=== PATIENT | male | born 1930 | race Caucasian/White ===

== ENCOUNTER 2017-12-06 13:59 | Inpatient (IN) | payer MEDICARE, MEDICAID ==
[~2017-12-06] VITALS: Ht 165.1 cm; Wt 52.7 kg
[~2017-12-06 13:59] MED LIST: AMLO5TAB4 PO; ASPI-1159 PO; PHEN100C4 PO
[2017-12-06 15:06] LABS: BASOPHILS % 0.4 % (0.0-2.0); EOSINOPHILS % 0.4 % (0.0-5.0); HEMOGLOBIN. 9.7 g/dL (14.0-18.0); LYMPHOCYTES % 10.5 % (20.0-50.0); MEAN CORPUSCULAR HEMOGLOBIN 30.4 pg (28.0-32.0); MEAN CORPUSCULAR VOLUME 88.1 fL (80.0-94.0); MONOCYTES % 5.5 % (2.0-8.0); NEUTROPHILS % 83.2 % (40.0-76.0); PLATELET 201 x1000/uL (130-400); RED BLOOD CELL COUNT 3.18 mill/uL (4.7-6.1); RED CELL DISTRIBUTION WIDTH 15.3 % (11.6-14.6)
[2017-12-06] MEDS ORDERED: ATROPINE SULFATE 1MG/10ML SYR ONE (15:06)
[2017-12-06 15:19] LABS: CHLORIDE 88 mEq/L (98-107)
[2017-12-06] MEDS ORDERED: DOPAMINE 400MG PREMIX 250 ML IV ONE ×2 (15:36→15:45)
[2017-12-06] MEDS ORDERED: SODIUM POLYSTYRENE SULFONATE 15 G/60 ML BOT PO NR (15:45)
[2017-12-06] MEDS ORDERED: SODIUM CHLORIDE 0.9% 500 ML IV ONE (15:45)
[2017-12-06 22:00] VITALS: BP 165/113
[2017-12-06] MEDS: DEXT 5%/0.9% NACL 1,000 ML IV SCH (23:00)
[2017-12-06] MEDS ORDERED: IPRATROPIUM/ALBUTEROL 0.5-3(2.5)MG/3ML NEB HHN PRN (23:00)
[2017-12-06] MEDS ORDERED: ACETAMINOPHEN 325MG TABLET PO PRN (23:00)
[2017-12-06] MEDS: DOPAMINE 400MG PREMIX 250 ML IV PRN (23:00)
[2017-12-06] MEDS ORDERED: ONDANSETRON HCL 4MG/2ML INJ IV PRN (23:00)
[2017-12-06 23:23] VITALS: BP 155/68
[2017-12-06 23:30] VITALS: BP 176/59
[2017-12-06 23:45] VITALS: BP 166/61
[2017-12-07] VITALS (94 sets, daily range): BP systolic 114–179; BP diastolic 32–114
[2017-12-07 00:37] LABS: CREATINE KINASE MB FRACTION 2.4 ng/mL (0.5-3.6)
[2017-12-07 00:55] LABS: CLARITY URINE CLEAR (CLEAR); COLOR URINE YELLOW (YELLOW); KETONES URINE NEGATIVE (NEGATIVE); LEUKOCYTE ESTERASE URINE 1+ (NEGATIVE); NITRITE URINE NEGATIVE (NEGATIVE); OCCULT BLOOD URINE TRACE (NEGATIVE); PROTEIN URINE TRACE (NEGATIVE); SPECIFIC GRAVITY URINE 1.008 (1.005-1.030); UROBILINOGEN URINE 0.2 E.U./dL (0.2-1.0)
[2017-12-07] MEDS: DOPAMINE 400MG PREMIX 250 ML IV PRN (02:27)
[2017-12-07 04:55] LABS: BASOPHILS % 0.3 % (0.0-2.0); EOSINOPHILS % 0.9 % (0.0-5.0); HEMATOCRIT. 29.7 % (42.0-52.0); HEMOGLOBIN. 10.2 g/dL (14.0-18.0); LYMPHOCYTES % 17.6 % (20.0-50.0); MEAN CORPUSCULAR HEMOGLOBIN 30.2 pg (28.0-32.0); MEAN CORPUSCULAR VOLUME 88.1 fL (80.0-94.0); MEAN PLATELET VOLUME 7.6 fl (7.4-10.4); MONOCYTES % 6.1 % (2.0-8.0); NEUTROPHILS % 75.1 % (40.0-76.0); PLATELET 206 x1000/uL (130-400); RED BLOOD CELL COUNT 3.37 mill/uL (4.7-6.1); RED CELL DISTRIBUTION WIDTH 15.2 % (11.6-14.6)
[2017-12-07 09:02] LABS: CREATINE KINASE 59 IU/L (39-308); CREATINE KINASE MB FRACTION 1.7 ng/mL (0.5-3.6)
[2017-12-07] MEDS ORDERED: PNEUMOCOCCAL 23-VAL P-SAC VAC 0.5 ML IM ONE (12:00)
[2017-12-07] MEDS ORDERED: INFLUENZA VIRUS VACCINE(AFLURIA) 0.5ML SYR IM ONE (12:00)
[2017-12-07] MEDS: DEXT 5%/0.9% NACL 1,000 ML IV SCH (12:56)
[2017-12-08] VITALS (98 sets, daily range): BP systolic 122–181; BP diastolic 37–116
[2017-12-08] MEDS: DEXT 5%/0.9% NACL 1,000 ML IV SCH ×2 (01:14→15:14)
[2017-12-08 04:41] LABS: BASOPHILS % 0.6 % (0.0-2.0); EOSINOPHILS % 2.2 % (0.0-5.0); HEMATOCRIT. 28.1 % (42.0-52.0); HEMOGLOBIN. 9.7 g/dL (14.0-18.0); LYMPHOCYTES % 20.1 % (20.0-50.0); MEAN CORPUSCULAR HEMOGLOBIN 30.6 pg (28.0-32.0); MEAN CORPUSCULAR VOLUME 88.2 fL (80.0-94.0); MEAN PLATELET VOLUME 7.5 fl (7.4-10.4); MONOCYTES % 5.4 % (2.0-8.0); NEUTROPHILS % 71.7 % (40.0-76.0); PLATELET 201 x1000/uL (130-400); RED BLOOD CELL COUNT 3.18 mill/uL (4.7-6.1); RED CELL DISTRIBUTION WIDTH 15.2 % (11.6-14.6)
[2017-12-08] MEDS: DOPAMINE 400MG PREMIX 250 ML IV PRN (05:28)
[2017-12-08] MEDS: DOCUSATE SODIUM 250MG CAPSULE PO SCH (09:01)
[2017-12-08] MEDS ORDERED: LEVETIRACETAM 500 MG in SODIUM CHLORIDE 0.9% 100 ML IV SCH (11:00)
[2017-12-08] MEDS ORDERED: LACTULOSE 20G/30ML UDC PO PRN (12:30)
[2017-12-08] MEDS ORDERED: LACTULOSE 20G/30ML UDC PO NR (12:30)
[2017-12-08] MEDS: LEVETIRACETAM 500MG PREMIX 100 ML IV SCH ×2 (12:35→21:55)
[2017-12-08] MEDS ORDERED: HYDRALAZINE 20MG/ML VIAL IV NR (19:30)
[2017-12-08] MEDS: AMLODIPINE 5MG TABLET PO SCH (21:55)
[2017-12-09] VITALS (116 sets, daily range): BP systolic 61–176; BP diastolic 24–106
[2017-12-09] MEDS: DEXT 5%/0.9% NACL 1,000 ML IV SCH ×2 (03:35→17:41)
[2017-12-09] MEDS: LEVETIRACETAM 500MG PREMIX 100 ML IV SCH ×2 (09:15→20:50)
[2017-12-09] MEDS: DOCUSATE SODIUM 250MG CAPSULE PO SCH (10:27)
[2017-12-09] MEDS: AMLODIPINE 5MG TABLET PO SCH ×2 (10:27→20:50)
[2017-12-10] VITALS (16 sets, daily range): BP systolic 110–169; BP diastolic 50–114
[2017-12-10 05:22] LABS: BASOPHILS % 0.7 % (0.0-2.0); EOSINOPHILS % 4.7 % (0.0-5.0); HEMATOCRIT. 25.9 % (42.0-52.0); HEMOGLOBIN. 8.9 g/dL (14.0-18.0); LYMPHOCYTES % 21.7 % (20.0-50.0); MEAN CORPUSCULAR HEMOGLOBIN 30.7 pg (28.0-32.0); MEAN CORPUSCULAR VOLUME 89.6 fL (80.0-94.0); MEAN PLATELET VOLUME 7.5 fl (7.4-10.4); MONOCYTES % 5.8 % (2.0-8.0); NEUTROPHILS % 67.1 % (40.0-76.0); PLATELET 165 x1000/uL (130-400); RED BLOOD CELL COUNT 2.89 mill/uL (4.7-6.1); RED CELL DISTRIBUTION WIDTH 15.5 % (11.6-14.6)
[2017-12-10] MEDS: AMLODIPINE 5MG TABLET PO SCH ×2 (11:15→20:54)
[2017-12-10] MEDS: LEVETIRACETAM 500MG PREMIX 100 ML IV SCH ×3 (11:15→22:08)
[2017-12-10] MEDS: DOCUSATE SODIUM 250MG CAPSULE PO SCH (11:15)
[2017-12-10] MEDS: LOSARTAN POTASSIUM 25 MG TABLET PO SCH (11:17)
[2017-12-10] MEDS ORDERED: MAGNESIUM 2 G PREMIX 50 ML IV NR (12:00)
[2017-12-10] MEDS: AMPICILLIN 500 MG in SODIUM CHLORIDE 0.9% 50 ML IV SCH ×2 (22:00→23:46)
[2017-12-11] VITALS: BP 140/52
[2017-12-11 04:00] VITALS: BP 157/52
[2017-12-11] MEDS: AMPICILLIN 500 MG in SODIUM CHLORIDE 0.9% 50 ML IV SCH (05:44)
[2017-12-11 08:00] VITALS: BP_SYST 142; BP_SYST 160; BP_DIAS 50; BP_DIAS 63
[2017-12-11] MEDS: LEVETIRACETAM 500MG PREMIX 100 ML IV SCH (10:26)
[2017-12-11] MEDS: DOCUSATE SODIUM 250MG CAPSULE PO SCH (10:26)
[2017-12-11] MEDS: LOSARTAN POTASSIUM 25 MG TABLET PO SCH (10:26)
[2017-12-11] MEDS: AMLODIPINE 5MG TABLET PO SCH (10:32)
[2017-12-11 13:02] VITALS: BP 120/51
== END 2017-12-11 14:10 | disposition home health service (06) | DRG 727 ==
LOC: ER 14:33 → EDBEDREQSVC 15:37 → CVICU 15:56 → EDBEDREQ 15:58 → EDBEDREQTM 15:58 → EDBEDREQSVC 15:58 → ENRESERV 16:01 → 6WST 12-10 13:23
PROVIDERS: ADMIT Internal Medicine; ATTEND Internal Medicine
PROC: 06HM33Z Insertion of Infusion Device into Right Femoral Vein, Percutaneous Approach (ICD-10-PCS; principal; 2017-12-06)
DX: B37.41 Candidal cystitis and urethritis (principal); G93.41 Metabolic encephalopathy; E87.5 Hyperkalemia; I27.20 Pulmonary hypertension, unspecified; E87.1 Hypo-osmolality and hyponatremia; Z68.1 Body mass index [BMI] 19.9 or less, adult; N39.0 Urinary tract infection, site not specified; B37.49 Other urogenital candidiasis; D64.9 Anemia, unspecified; G40.909 Epilepsy, unspecified, not intractable, without status epilepticus; T42.0X5A Adverse effect of hydantoin derivatives, initial encounter; I13.10 Hypertensive heart and chronic kidney disease without heart failure, with stage 1 through stage 4 chronic kidney disease, or unspecified chronic kidney disease; N18.9 Chronic kidney disease, unspecified; R00.1 Bradycardia, unspecified; B95.2 Enterococcus as the cause of diseases classified elsewhere; F03.90 Unspecified dementia, unspecified severity, without behavioral disturbance, psychotic disturbance, mood disturbance, and anxiety; H91.90 Unspecified hearing loss, unspecified ear; R33.8 Other retention of urine; N40.1 Benign prostatic hyperplasia with lower urinary tract symptoms; K59.00 Constipation, unspecified; R63.4 Abnormal weight loss; Y92.89 Other specified places as the place of occurrence of the external cause; Z85.528 Personal history of other malignant neoplasm of kidney; Z86.73 Personal history of transient ischemic attack (TIA), and cerebral infarction without residual deficits; Z79.899 Other long term (current) drug therapy; Z85.828 Personal history of other malignant neoplasm of skin
CPT/HCPCS: 36415; 36556; 70551; 71045; 80048; 80185; 81001; 82040; 82550; 82553; 82962; 83735; 84443; 84484; 87077; 87186; 92610; 93005; 93306; 93970; 99285; J0290; J0360; J0461; J1265; J1953; J3475; J7040; J7042; J7050